=== PATIENT | male | born 1950 | race Asian ===

== ENCOUNTER 2025-07-17 15:01 | Emergency (ER) | payer OTHER ==
[~2025-07-17] VITALS: Ht 165.1 cm; Wt 66.0 kg
[2025-07-17 15:04] VITALS: TEMP 36.4; O2SAT 99
[2025-07-17 16:19] LABS: HEMATOCRIT. 42.8 % (42.0-52.0); HEMOGLOBIN. 14.6 g/dL (14.0-18.0); MEAN PLATELET VOLUME 9.0 fl (7.4-10.4); PLATELET 142 x1000/uL (130-400); RED BLOOD CELL COUNT 4.43 mill/uL (4.7-6.1); RED CELL DISTRIBUTION WIDTH 14.9 % (11.6-14.6)
[2025-07-17 16:31] LABS: INR 0.9
[2025-07-17 16:34] LABS: CREATININE 0.9 mg/dL (0.6-1.3); LYMPHOCYTES % MANUAL 4.0 % (20.0-50.0); MONOCYTES % MANUAL 5.0 % (2.0-8.0); NEUTROPHILS % MANUAL 91.0 % (45.0-75.0); PLATELET ESTIMATE NORMAL; UREA NITROGEN BLOOD 18 mg/dL (9-23)
[2025-07-17 16:35] LABS: TROPONIN I HIGH SENSITIVITY 6 ng/L (3.0-53)
[2025-07-17 16:36] LABS: ASPARTATE AMINOTRANSFERASE 85 IU/L (<34); BILIRUBIN DIRECT 0.4 mg/dL (<=3.0); BILIRUBIN TOTAL 1.4 mg/dL (0.1-1.0)
[2025-07-17 16:37] LABS: PROTEIN TOTAL 7.5 g/dL (6.0-8.3)
[2025-07-17] MEDS: LIDOCAINE 5% PATCH TOP STA (16:43)
[2025-07-17] MEDS: KETOROLAC 15MG/ML VIAL IM ONE (16:44)
[2025-07-17 23:14] VITALS: BP 164/71; PULSE 67; RESP 16; O2SAT 97
== END 2025-07-17 23:35 | disposition short-term general hospital (02) ==
LOC: ER 15:01
DX: S22.42XA Multiple fractures of ribs, left side, initial encounter for closed fracture (principal); S27.2XXA Traumatic hemopneumothorax, initial encounter; K83.8 Other specified diseases of biliary tract; J98.11 Atelectasis; R79.89 Other specified abnormal findings of blood chemistry; W19.XXXA Unspecified fall, initial encounter; Y93.89 Activity, other specified; Y92.89 Other specified places as the place of occurrence of the external cause; Y99.8 Other external cause status
CPT/HCPCS: 99285; 71250; 80076; 80048; 83690; 85025; 85610; 84484; 36415; 71101; 93005; 96372; J1885